=== PATIENT | female | born 1960 | race Caucasian/White ===

== ENCOUNTER 2024-02-17 16:37 | Emergency (ER) | payer OTHER, SELFPAY ==
--- NOTE | 2024-02-17 16:38 | ED.WOUNDLAC ---
HPI - Wound/Laceration General Chief Complaint: Wound/Laceration Stated Complaint: FINGER LACERATION Source: patient and RN notes reviewed Mode of arrival: ambulatory Limitations: no limitations History of Present Illness HPI narrative: Patient is a 63-year-old female who presents to the [facility] with complaints of laceration to her right 2nd finger. Patient states that she was cleaning a [place] [place] and cut her finger on a metal object. She presents with a 2 cm laceration to the distal phalanx of the right 2nd finger. Bleeding is controlled at this time. Sensation is intact. Cap refill is normal. Patient has full range of motion of her right 2nd finger. Review of Systems Review of Systems: CONSTITUTIONAL: Denies fever, chills, or sweats. EYES: Denies visual changes, redness, or discharge. ENT: Denies otalgia and sore throat CARDIOVASCULAR: Denies chest pain, palpitations, or edema. RESPIRATORY: Denies cough or dyspnea. GASTROINTESTINAL: Denies abdominal pain, nausea, vomiting, or diarrhea. GENITOURINARY: Denies dysuria or hematuria. SKIN: Denies rash or itching. Laceration to the right index finger. MUSCULOSKELETAL: Denies back pain, joint pain, or myalgia. NEUROLOGIC: Denies headache, numbness, or weakness. Pertinent positives per HPI. PMFSH Comments At the time of my signature, I reviewed and agree with the nursing past medical, surgical, social, and family history. There is no relevant family history pertinent to the patient complaint. Exam Narrative: GENERAL: This is a well-nourished, well-developed patient, in no apparent distress. HEAD: normocephalic, atraumatic. EYES: Sclera clear/white. Vision is grossly intact. EARS: External ears normal. Hearing grossly intact. NOSE: External nose normal with no obvious nasal discharge, nares without redness, no rhinorrhea. THROAT: Mucous membranes moist, posterior pharynx clear. NECK: Neck supple, non-tender without lymphadenopathy, masses or thyromegaly. CARDIOVASCULAR: Regular rate and rhythm without murmurs, gallops, or rubs. RESPIRATORY: Clear to auscultation. Breath sounds equal bilaterally. No wheezes, rales, or rhonchi. GASTROINTESTINAL: Abdomen soft, non-tender, nondistended. Bowel sounds are active. No hepato-splenomegaly, or palpable masses. No guarding. SKIN: 2 cm laceration to the distal phalanx of the right index finger. Cap refill normal. Sensation intact. NEURO: awake, alert, and oriented to person, place and time. There were no obvious focal neurologic abnormalities. EXTREMITIES: No clubbing, cyanosis, or edema. No joint tenderness, effusion, or edema noted. Course Course Level of Care: Express Care Visit Vital Signs Vital signs: Vital Signs Temperature 97.3 F L 02/17/24 16:56 Pulse Rate 66 02/17/24 16:56 Respiratory Rate 16 02/17/24 16:56 Blood Pressure 136/71 02/17/24 16:56 Pulse Oximetry 98 02/17/24 16:56 Temperature 97.3 F L 02/17/24 16:56 Pulse Rate 66 02/17/24 16:56 Respiratory Rate 16 02/17/24 16:56 Blood Pressure 136/71 02/17/24 16:56 Pulse Oximetry 98 02/17/24 16:56 Reviewed Procedures Laceration Laceration 1: Date: 02/17/24 Time: 16:55 Site: other (index finger) Side (If applicable): right Size (cm): 2 Description: linear Depth: simple, single layer Local Anesthetic: none Pre-repair: wound explored ====== Skin Level ====== Skin layer closed with: dermabond ====== Subcutaneous Layer ====== ====== Muscle Layer ====== ====== Tendon Layer ====== Dressing: Non-adhesive dressing and tube gauze MDM - Wound/Laceration MDM Narrative Medical decision making narrative: Laceration repaired with Dermabond. Wound care instructions reviewed with patient. Non-adhesive dressing with tube gauze applied. -adhesive works like a bandage; do not use antibiotic onitment as it can break down the adhesive -You c
[2024-02-17 16:56] VITALS: BP 136/71; PULSE 66; RESP 16; TEMP 36.3; O2SAT 98
[2024-02-17] MEDS: TETANUS,DIPHTHERIA,AC PERTUSSIS ADULT (0.5 ML) BOOSTRIX IM (20:13)
--- NOTE | 2024-02-17 20:13 | PC.NURSE ---
boostrix medication was administered at 1705 and was scanned pts bracelet and barcode - laptop error message and unable to create lock to update pts status. and wouldnt let me off that screen, so charted it manually now.
== END 2024-02-17 17:12 | disposition home or self-care (01) ==
PROVIDERS: Emergency Provider Nurse Practitioner
DX: S61.210A Laceration without foreign body of right index finger without damage to nail, initial encounter (principal); W45.8XXA Other foreign body or object entering through skin, initial encounter; Z23 Encounter for immunization
CPT/HCPCS: 12001; 90471; 90715; 99212; G0463

== ENCOUNTER 2024-04-14 10:30 | Outpatient (RCR) | payer OTHER, SELFPAY ==
--- NOTE | 2024-02-23 15:26 | OPREHPOC ---
Outpatient Therapy Plan of Care This is a Multidisciplinary Plan of Care that may contain components documented by all disciplines (PT, OT, and ST.) PT Problem 1 PT Problem #1 Knowledge Deficit PT Goal 1 Goal / Goal Update 1. Patient will perform independent HEP Target Visit 2 PT Goal 1 Goal / Goal Update 1. Pelvic floor strength to 3/5 to decrease incontinence 2. Pelvic floor endurance to 10 seconds to decrease incontinence Target Visit 5 PT Problem 3 PT Problem #3 Impaired Functional ADLs PT Goal 1 Goal / Goal Update 1. Urinary incontinence no more than 1 time every 2 weeks 2. Fecal incontinence no more than 1 time a year Target Visit 5
--- NOTE | 2024-02-23 15:26 | PTOPEVAL1 ---
Assessment and note entered by Antonella Valencia DPT Evaluation Information Assessment Status Evaluation Diagnosis r15.9 ICD-10 Condition Codes (PT) Weakness R53.1,Stress incontinence N39.3 Subjective Information Pt reports she had a hysterectomy in 2020 due to prolapse. Reports she had a tough recovery and had to self cath for awhile. Was prescribed a local estrogen and has not been using it all the time. Is now noticing some incontinence. Voids 6-7 times a day and 1-2 times at night. Can hold urge to void as long as needed. Incontinence several times a day, small volume and wears a pad at all times. Uses 3 pads a day. Typically occurs with a cough, sneeze, or certain movements like sitting down. Denies pain with urination. BM on average 2-3 times a day, denies pain. Very infrequent fecal incontinence, not even once a month. More than a smear on the pad. Unable to correlate cause. Denies history of pelvic pain. Pt has been 3 times and 3 vaginal deliveries, forceps and tearing with her first. No other ORE TESTER or b/b history. Patient goal: decrease incontinence, not wear pads . Reports frustration and fear of going out in the community after she has the fecal incontinence. Diet: small breakfast, bigger lunch, smaller dinner. Light snacking at times. Does not cut out any major food groups. Drinks iced tea once a week . Infrequent alcohol use. Reported Pain Level Pain Score 0: Self Report Assessment PT Clinical Summary The patient is presenting to skilled therapy with daily urinary incontinence and infrequent fecal incontinence. She presents with significantly decreased pelvic floor strength and endurance as well as decreased core strength which are contributing to her incontinence and daily pad use . She will highly benefit from therapy to address these impairments in order to reduce incontinence and improve function. Plan of Care Interventions Manual Therapy,Neuro Re-education,Patient/ Caregiver Education,Therapeutic Activities, Therapeutic Exercise PT Services Indicated Yes Treatment Frequency and 1 time a week for 5 visits Duration These treatments will address the objective and functional deficits as d
--- NOTE | 2024-03-15 15:32 | OPREHPOC ---
Outpatient Therapy Plan of Care This is a Multidisciplinary Plan of Care that may contain components documented by all disciplines (PT, OT, and ST.) PT Problem 1 PT Problem #1 Knowledge Deficit PT Goal 1 Goal / Goal Update 1. Patient will perform independent HEP Target Visit 2 Progress Met PT Goal 1 Goal / Goal Update 1. Pelvic floor strength to 3/5 to decrease incontinence 2. Pelvic floor endurance to 10 seconds to decrease incontinence Added 03/15/24 3. Hip strength to 5/5 in all planes Target Visit 10 PT Problem 3 PT Problem #3 Impaired Functional ADLs PT Goal 1 Goal / Goal Update 1. Urinary incontinence no more than 1 time every 2 weeks 2. Fecal incontinence no more than 1 time a year Added 03/15/24 3. No hip pain with ADL's for at least 2 weeks Target Visit 10
--- NOTE | 2024-03-15 15:32 | PTOPREEVAL ---
Assessment and note entered by Antonella Valencia DPT Evaluation Information Assessment Status Re-evaluation Diagnosis r15.9 ICD-10 Condition Codes (PT) Pain in right hip M25.551 Subjective Information Pt also reports she has been having L knee pain and R hip pain that started in 2022. R hip pain caused difficulty sleeping on that side. Has been told she has hip arthritis, bursitis, and spurs . Was given a cortisone injection in January which helped the hip. Highest hip pain recently 6/10 and lowest 0/10. Pain also increases with turning a certain way like while making the bed. Sometimes does not use reciprocal pattern during stairs. Patient goal: see what will help Reported Pain Level Pain Score 0: Self Report Assessment PT Clinical Summary The patient is presenting to skilled therapy with order for R hip pain in addition to pelvic floor concerns. She presents with decreased functional hip strength and tenderness to palpation which are contributing to her pain and difficulty with certain activities at home including making the bed and navigating stairs. She will highly benefit from therapy to address these impairments in order to reduce pain and improve function. Plan of Care Interventions Electrical Stimulation,Gait Training,Hot Pack/Cold Pack,Manual Therapy,Neuro Re-education,Patient/ Caregiver Education,Therapeutic Activities, Therapeutic Exercise PT Services Indicated Yes Treatment Frequency and 2 times a week for 6 visits (once a week to focus Duration on pelvic floor in addition to hip) These treatments will address the objective and functional deficits as defined above. The patient will be advanced safely and appropriately in order for the patient to progress towards his/her prior level of function. Additional exercises will be introduced and as well as a comprehensive home exercise program upon discharge, if needed, ?to ensure carryover of functional gains achieved in the clinic. This treatment plan has been reviewed and agreement upon by the patient.
--- NOTE | 2024-03-31 11:37 | PCPTNOTE ---
Patient called to cancel this date due to being out of town.
--- NOTE | 2024-04-05 14:31 | PCPTNOTE ---
Patient called & cancelled scheduled appointment this date due to having to go out of town to assist family.
--- NOTE | 2024-04-14 11:12 | OPREHPOC ---
Outpatient Therapy Plan of Care This is a Multidisciplinary Plan of Care that may contain components documented by all disciplines (PT, OT, and ST.) PT Problem 1 PT Problem #1 Knowledge Deficit PT Goal 1 Goal / Goal Update 1. Patient will perform independent HEP Target Visit 2 Progress Met PT Goal 1 Goal / Goal Update 1. Pelvic floor strength to 3/5 to decrease incontinence 2. Pelvic floor endurance to 10 seconds to decrease incontinence Added 03/15/24 3. Hip strength to 5/5 in all planes update 04/14/24 1. met 2. met 3. partially met Target Visit 10 Progress Partially Met PT Problem 3 PT Problem #3 Impaired Functional ADLs PT Goal 1 Goal / Goal Update 1. Urinary incontinence no more than 1 time every 2 weeks 2. Fecal incontinence no more than 1 time a year Added 03/15/24 3. No hip pain with ADL's for at least 2 weeks update 04/14/24 1. partially met 2. not addressed 3. met Target Visit 10 Progress Partially Met
--- NOTE | 2024-04-14 11:14 | PTOPDC ---
Assessment and note entered by Antonella Valencia DPT Evaluation Information Assessment Status Discharge Diagnosis r15.9 ICD-10 Condition Codes (PT) Pain in right hip M25.551 Subjective Information Pt reports she had 1 day last week without incontinence at all. Overall the frequency has decreased. Seems to be occurring most with sitting down or bending over. Pt reports no hip pain in the last week, feels things are a lot better . Has not had an episode of her hip catching . Pt is able to lay on her right side without issue. Can use reciprocal pattern on stairs except maybe early in the morning if she feels stiff (not pain related Reported Pain Level Pain Score 0: Self Report Assessment PT Clinical Summary The patient has made excellent progress in therapy . She reports decreased frequency of incontinence and no recent hip pain. She reports no functional limitations due to her LE at this time. She demonstrates improved LE strength and improved pelvic floor strength and endurance. Due to her progress, discharge is recommended at this time. She has been educated in a thorough HEP and to follow up with MD and/or PT as needed. Plan of Care PT Services Indicated No
== END 2024-04-19 13:25 | disposition home or self-care (01) ==
LOC: ANHGOSHPT 10:30
DX: R15.9 Full incontinence of feces (principal)
CPT/HCPCS: 97110; 97112; 97140; 97161; 97530